=== PATIENT | female | born 1980 | race Caucasian/White ===

== ENCOUNTER 2024-09-06 02:40 | Emergency (ER) | payer OTHER ==
[~2024-09-06] VITALS: Ht 172.7 cm; Wt 40.9 kg
[2024-09-06 02:49] VITALS: TEMP 97.5
[2024-09-06] MEDS: MORPHINE SULFATE 4 MG/ML SYRINGE IVP ONE (03:17)
[2024-09-06] MEDS: ONDANSETRON HCL 4 MG/2 ML VIAL IVP ONE ×2 (03:17→09:06)
[2024-09-06] MEDS: SODIUM CHLORIDE 0.9% 1,000 ML IV ONE ×2 (03:17→05:25)
[2024-09-06 03:50] LABS: BASOPHILS % (AUTO) 0.4 % (0.0-2.0); HEMOGLOBIN 13.1 g/dL (12.0-16.0); LYMPHOCYTES # (AUTO) 2.7 K/uL (1.0-4.8); LYMPHOCYTES % (AUTO) 28.9 % (22.0-44.0); MEAN CORPUSCULAR HGB CONC 33.7 G/dL (31.0-37.0); MEAN CORPUSCULAR VOLUME 86 fL (80-100); MONOCYTES # (AUTO) 0.8 K/uL (0.1-1.0); MONOCYTES % (AUTO) 8.6 % (2.0-9.0); NEUTROPHILS # (AUTO) 5.6 K/uL (1.8-7.7); NEUTROPHILS % (AUTO) 61.1 % (40.0-70.0); PLATELET COUNT (AUTO) 245 K/uL (150-450); RED BLOOD CELL COUNT(AUTO) 4.52 MIL/uL (4.00-5.20); RED CELL DISTRIBUTION WIDTH 14.5 % (11.5-14.5); WHITE BLOOD COUNT (AUTO) 9.2 K/uL (4.5-11.0)
[2024-09-06 03:53] LABS: CREATININE 1.02 mg/dL (0.60-1.30); POTASSIUM 3.9 mmol/L (3.5-5.1)
[2024-09-06 04:34] LABS: ALBUMIN 3.5 g/dL (3.4-5.0); BILIRUBIN,DIRECT 0.1 mg/dL (0.00-0.20); BILIRUBIN,TOTAL 0.4 mg/dL (0.1-1.0); TOTAL PROTEIN, SERUM 6.8 g/dL (6.4-8.2)
[2024-09-06 04:39] LABS: APPEARANCE,URINE HAZY (CLEAR); BILIRUBIN,URINE NEGATIVE (NEGATIVE); COLOR,URINE YELLOW (YELLOW); GLUCOSE, URINE (UA) NEGATIVE (NEGATIVE); KETONES,URINE TRACE mg/dL (NEGATIVE); LEUKOCYTE ESTERASE ,URINE LARGE (NEGATIVE); NITRATE,URINE NEGATIVE (NEGATIVE); OCCULT BLOOD,URINE NEGATIVE (NEGATIVE); PROTEIN,URINE 30-70 mg/dL (NEGATIVE); SPECIFIC GRAVITIY, URINE 1.026 (1.003-1.030); UROBILINOGEN,URINE <=1.0 mg/dL (<=1.0)
[2024-09-06 04:48] LABS: BACTERIA,URINE Moderate /HPF (None Seen); SQUAMOUS EPITHELIAL CELL,UR Rare /LPF (None Seen); URINALYSIS COMMENT Few Trichomonas seen; WBC,URINE 51-100 /HPF (0-5)
[2024-09-06] MEDS: HYDROmorphone HCL 2 MG/ML SYRINGE IVP ONE (04:59)
[2024-09-06] MEDS: PB/HYOSCY/ATR/SCOP/LIDO/MAALOX 55 ML BOTTLE PO ONE (05:25)
[2024-09-06] MEDS: OMEPRAZOLE 20 MG CAPSULE PO ONE (05:25)
[2024-09-06] MEDS ORDERED: CEPH-558 PO (08:33)
[2024-09-06] MEDS ORDERED: FAMO20 PO (08:33)
[2024-09-06] MEDS ORDERED: ONDA-104 PO (08:33)
[2024-09-06] MEDS: CefTRIAXone 1 GM/DEXTROSE 50 ML IV ONE (09:06)
[2024-09-06 09:10] VITALS: BP 139/87; PULSE 56; RESP 16; O2SAT 100
== END 2024-09-06 10:03 | disposition home or self-care (01) ==
LOC: EMS 02:44
DX: N39.0 Urinary tract infection, site not specified (principal); I87.2 Venous insufficiency (chronic) (peripheral); F12.90 Cannabis use, unspecified, uncomplicated
CPT/HCPCS: 99285; 96365; 96375; 76700; 96361; 80048; 80076; 81001; 83690; 84703; 85025; 87086; 36415; 96376; J1171; J0696; J2270; J2405; J7030; 96366

== ENCOUNTER 2024-10-23 02:49 | Emergency (ER) | payer OTHER ==
[~2024-10-23] VITALS: Ht 172.7 cm; Wt 87.7 kg
[~2024-10-23 02:49] MED LIST: CEPH-558 PO; FAMO20 PO; ONDA-104 PO
[2024-10-23 02:57] VITALS: TEMP 98
[2024-10-23 03:30] VITALS: BP 102/60; PULSE 82; RESP 15; O2SAT 98
[2024-10-23] MEDS: KETOROLAC TROMETHAMINE 30 MG/ML VIAL IM ONE (03:31)
[2024-10-23] MEDS ORDERED: AMOX-457 PO (03:33)
[2024-10-23] MEDS: PERTUSS(ACELL),DIPH,TET/PF 0.5 ML SYRINGE [ADULT] IM. ONE (03:33)
== END 2024-10-23 03:49 | disposition home or self-care (01) ==
LOC: EMS 02:50
DX: S61.451A Open bite of right hand, initial encounter (principal); F17.210 Nicotine dependence, cigarettes, uncomplicated; W55.01XA Bitten by cat, initial encounter; Y93.89 Activity, other specified; Y92.89 Other specified places as the place of occurrence of the external cause; Y99.8 Other external cause status
CPT/HCPCS: 99284; 90715; 90471; 96372; J1885